=== PATIENT | male | born 1985 | race Caucasian/White ===

== ENCOUNTER 2016-11-12 14:31 | Emergency (ER) | payer SELFPAY ==
[2016-11-12] MEDS ORDERED: NS 1,000 ML IV ONE ×3 (14:50→17:41)
[2016-11-12] MEDS ORDERED: ONDANSETRON 4 MG/2 ML VIAL IVP ONE (14:50)
--- NOTE | 2016-11-12 14:53 | EDPHY ---
H & P Time Seen by Provider: 11/12/16 14:40 HPI/ROS: CHIEF COMPLAINT: Diarrhea and abdominal pain HISTORY OF PRESENT ILLNESS: Patient recently moved here from [place]. No recent foreign travel. He had at [employer] on Sunday. Yesterday around 4:00 p.m. he started feeling sick with nausea and some abdominal discomfort and around 6:00 p.m. yesterday started having diarrhea which was watery every other hour associated with severe diffuse abdominal cramping which lasted all night. Symptoms severe, not associated with vomiting. Worse abdominal pain with any attempted oral intake. Not black or bloody stool. No recent injury or trauma. REVIEW OF SYSTEMS: Eye: no change in vision ENT: no sore throat Cardiac: no chest pain or syncope Pulmonary: no cough or SOB Abdomen: HPI Musculoskeletal: no back pain Skin: no rash Neuro: no headache Constitutional: no fever : no urinary symptoms A comprehensive 10 point review of systems is otherwise negative aside from elements mentioned in the history of present illness. PAST MEDICAL HISTORY: Negative. No previous abdominal surgeries. Family history: Negative for ulcerative colitis or Crohn's Social history: No alcohol General Appearance: Alert and conversant, cooperative. Eyes: No scleral icterus. ENT, Mouth: Dry mucous membranes Respiratory: Normal respiratory effort, breath sounds equal, lungs are clear to auscultation. Cardiovascular: Regular rate and rhythm. Gastrointestinal: Abdomen is soft and non tender. No hernia, normal inspection. No McBurney's point tenderness, not distended, bowel sounds present. Neurological: Alert and oriented x3. Normally conversant. Face symmetric, normal movement and sensation in all extremities. Skin: Warm and dry, no rashes. Musculoskeletal: No peripheral edema and no joint swelling. Psychiatric: Not agitated. Emergency Department course/MDM: Diarrhea with abdominal cramping more likely on initial impression to be infectious than surgical. 2 L IV normal saline, Zofran 4 mg IV, labs to include CBC LFTs and lipase. 1539: Labs reviewed, normal WBC LFTs and lipase. Normal electrolytes. 1605: Feels better, less pain, no rebound or guarding on physical examination at this time. Plan to try oral fluids after 2nd L complete. 1715: Tried to eat and drink but can' t because every time he does his pain increases. At this time he has bilateral lower quadrant abdominal tenderness right greater than left. IV Reglan 10 mg, CT scanning to evaluate his appendix discussed and consented 1919: Patient was concerned about insurance so he declined CT scan. However at this time he is able to tolerate oral fluids, has minimal pain, abdomen soft and nontender. Wants to be discharged. I think that is reasonable as he can tolerate oral fluids, will call him with the results of his GI pathogen panel. 2147: GI stool panel resulted as Cryptosporidium, discussed with the patient. He is immunocompetent, recommended supportive care and no specific other treatment. Smoking Status: Never smoked Constitutional: Initial Vital Signs Temperature (C) 36.6 C 11/12/16 14:34 Heart Rate 72 11/12/16 14:34 Respiratory Rate 16 11/12/16 14:34 Blood Pressure 120/72 11/12/16 14:34 O2 Sat (%) 99 11/12/16 14:34 O2 Delivery Mode Room Air Allergies/Adverse Reactions: cat dander Allergy (Verified 11/12/16 14:37) Home Medications: Medication Instructions Recorded Ondansetron Odt [Zofran Odt] 4 mg PO Q4PRN #6 tab 11/12/16 Medical Decision Making Differential Diagnosis: Differential considered including but not limited to gastroenteritis, infectious diarrhea, GI bleed, appendicitis, metabolic abnormality - Data Points Laboratory Results: Laboratory Results 11/12/16 15:00 11/12/16 15:00 11/12/16 11/12/16 15:00 15:00 WBC 7.61 10^3/uL 10^3/uL (3.80-9.50) RBC 5.42 10^6/uL 10^6/uL (4.40-6.38) Hgb 16.1 g/dL g/dL (13.7-17.5) Hct 48.5 % % (40.0-51.0) MCV 89.5 fL fL (81.5-99.8) MCH 29.7 pg pg (27.9-34.1) MCHC 33.2 g/dL g/dL (32.4-36.7) RDW 14.0 % % (11.5-15.2) Plt Count 211 10^3/uL 10^3/uL (150-400) MPV 10.7 fL fL (8.7-11.7) Neut % (Auto) 65.6 % % (39.3-74.2) Lymph % (Auto) 12.7 % L % (15.0-45.0) [place] % (Auto) 16.4 % H % (4.5-13.0) Eos % (Auto) 4.7 % % (0.6-7.6) Baso % (Auto) 0.3 % % (0.3-1.7) Nucleat RBC Rel Count 0.0 % % (0.0-0.2) Absolute Neuts (auto) 4.99 10^3/uL 10^3/uL (1.70-6.50) Absolute Lymphs (auto) 0.97 10^3/uL L 10^3/uL (1.00-3.00) Absolute Monos (auto) 1.25 10^3/uL H 10^3/uL (0.30-0.80) Absolute Eos (auto) 0.36 10^3/uL 10^3/uL (0.03-0.40) Absolute Basos (auto) 0.02 10^3/uL 10^3/uL (0.02-0.10) Absolute Nucleated RBC 0.00 10^3/uL 10^3/uL (0-0.01) Immature Gran % 0.3 % % (0.0-1.1) Immature Gran # 0.02 10^3/uL 10^3/uL (0.00-0.10) Sodium 137 mEq/L mEq/L (134-144) Potassium 3.9 mEq/L mEq/L (3.5-5.2) Chloride 102 mEq/L mEq/L (97-110) Carbon Dioxide 26 mEq/l mEq/l (22-31) Anion Gap 9 mEq/L mEq/L (8-16) BUN 13 mg/dL mg/dL (7-23) Creatinine 1.0 mg/dL mg/dL (0.7-1.3) Estimated GFR > 60 Glucose 99 mg/dL mg/dL (70-100) Calcium 9.4 mg/dL mg/dL (8.5-10.4) Total Bilirubin 0.4 mg/dL mg/dL (0.1-1.4) Conjugated Bilirubin 0.2 mg/dL mg/dL (0.0-0.5) Unconjugated Bilirubin 0.2 mg/dL mg/dL (0.0-1.1) AST 34 IU/L IU/L (17-59) ALT 60 IU/L IU/L (21-72) Alkaline Phosphatase 64 IU/L IU/L (38-126) Total Protein 6.6 g/dL g/dL (6.3-8.2) Albumin 3.9 g/dL g/dL (3.5-5.0) Lipase 40.0 IU/L IU/L (23-300) Microbiology Results: MICROBIOLOGY 11/12/16 17:00 Stool Gastrointestinal Tract Panel (PCR) - Final Cryptosporidium Species Medications Given: Discontinued Medications Sodium Chloride (Ns) 1,000 mls @ 0 mls/hr IV EDNOW ONE; Wide Open PRN Reason: Protocol Stop: 11/12/16 14:51 Last Admin: 11/12/16 15:10 Dose: 1,000 mls Sodium Chloride (Ns) 1,000 mls @ 0 mls/hr IV EDNOW ONE; Wide Open PRN Reason: Protocol Stop: 11/12/16 14:51 Last Admin: 11/12/16 15:46 Dose: 1,000 mls Sodium Chloride (Ns) 1,000 mls @ 0 mls/hr IV EDNOW ONE; Wide Open PRN Reason: Protocol Stop: 11/12/16 17:42 Last Admin: 11/12/16 18:01 Dose: 1,000 mls Metoclopramide HCl (Reglan Injection) 10 mg IVP EDNOW ONE Stop: 11/12/16 17:20 Last Admin: 11/12/16 17:31 Dose: 10 mg Ondansetron HCl (Zofran) 4 mg IVP EDNOW ONE Stop: 11/12/16 14:51 Last Admin: 11/12/16 15:10 Dose: 4 mg Departure - Departure Disposition: Home, Routine, Self-Care Clinical Impression: Dehydration Diarrhea Qualifiers: Diarrhea type: unspecified type Qualified Code(s): R19.7 - Diarrhea, unspecified Abdominal pain Qualifiers: Abdominal location: unspecified location Qualified Code(s): R10.9 - Unspecified abdominal pain Condition: Good Instructions: Dehydration (ED), Acute Diarrhea (ED), Acute Abdominal Pain (ED) Additional Instructions: You need to return to the emergency department immediately if you develop worsening or severe pain, fever, vomiting or you are not completely better in 8- 12 hours. Referrals: Shelli Sneed MD [Medical Doctor] - As per Instructions Stand Alone Forms: Work Excuse Prescriptions: Ondansetron Odt [Zofran Odt] 4 mg PO Q4PRN #6 tab
[2016-11-12 15:19] LABS: % IMMATURE GRANULYOCYTES 0.3 % (0.0-1.1); ABSOLUTE IMMATURE GRANULOCYTES 0.02 10^3/uL (0.00-0.10); ADD DIFF? NO; ADD MORPH? NO; ADD SCAN? NO; ATYPICAL LYMPHOCYTE FLAG 30 (0-99); FRAGMENT RBC FLAG 0 (0-99); HEMATOCRIT 48.5 % (40.0-51.0); HEMOGLOBIN 16.1 g/dL (13.7-17.5); LEFT SHIFT FLG 0 (0-99); LIPEMIA HEMOLYSIS FLAG 80 (0-99); MEAN CELL HEMOGLOBIN 29.7 pg (27.9-34.1); MEAN CELL HEMOGLOBIN CONCENTR. 33.2 g/dL (32.4-36.7); MEAN CELL VOLUME 89.5 fL (81.5-99.8); MEAN PLATELET VOLUME 10.7 fL (8.7-11.7); PLATELET CLUMPS FLAG 0 (0-99); PLATELET COUNT 211 10^3/uL (150-400); RED BLOOD CELL COUNT 5.42 10^6/uL (4.40-6.38)
[2016-11-12 15:37] LABS: ALANINE AMINOTRANSFERASE 60 IU/L (21-72); ALBUMIN 3.9 g/dL (3.5-5.0); ALKALINE PHOSPHATASE 64 IU/L (38-126); ANION GAP 9 mEq/L (8-16); ASPARTATE AMINOTRANSFERASE 34 IU/L (17-59); BILIRUBIN,TOTAL 0.4 mg/dL (0.1-1.4); BILIRUBIN-CONJUGATED 0.2 mg/dL (0.0-0.5); BILIRUBIN-UNCONJUGATED 0.2 mg/dL (0.0-1.1); CALCIUM 9.4 mg/dL (8.5-10.4); CARBON DIOXIDE 26 mEq/l (22-31); CHLORIDE 102 mEq/L (97-110); GLOMERULAR FILTRATION RATE > 60; GLUCOSE 99 mg/dL (70-100); POTASSIUM 3.9 mEq/L (3.5-5.2); SODIUM 137 mEq/L (134-144); TOTAL PROTEIN 6.6 g/dL (6.3-8.2)
[2016-11-12] MEDS ORDERED: METOCLOPRAMIDE 10 MG/2 ML VIAL IVP ONE (17:19)
[2016-11-12] MEDS ORDERED: IOPAMIDOL (ISOVUE-300) 100 ML BTL ONE (17:42)
[2016-11-12 18:23] VITALS: RESP 18
[2016-11-12 19:30] VITALS: BP 117/61; PULSE 60; TEMP 98.6; O2SAT 97
== END 2016-11-12 19:30 | disposition home or self-care (01) ==
DX: R19.7 Diarrhea, unspecified (principal); E86.9 Volume depletion, unspecified; E86.0 Dehydration
CPT/HCPCS: 96374; J2405; J2765; Q9967